=== PATIENT | male | born 1980 | race American Indian/Alaskan Native ===

== ENCOUNTER 2016-09-28 14:30 | Emergency (ER) | payer OTHER ==
[2016-09-28] MEDS ORDERED: NORCO 5/325 PO ONE (18:27)
[2016-09-28] MEDS ORDERED: MOTRIN PO ONE (18:27)
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
[2016-09-28 20:54] VITALS: BP 169/92
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
== END 2016-09-28 20:55 | disposition home or self-care (01) ==
LOC: ED 14:30
DX: M54.5 Low back pain (principal); J45.909 Unspecified asthma, uncomplicated; G89.29 Other chronic pain; Z90.89 Acquired absence of other organs; Z12.10 Encounter for screening for malignant neoplasm of intestinal tract, unspecified; V89.2XXA Person injured in unspecified motor-vehicle accident, traffic, initial encounter; Y93.89 Activity, other specified; Y92.9 Unspecified place or not applicable; Y99.9 Unspecified external cause status
CPT/HCPCS: 72100; 99283